=== PATIENT | male | born 1970 | race Caucasian/White ===

== ENCOUNTER 2023-01-22 06:45 | Inpatient (IN) | payer MEDICAID ==
[~2023-01-22] VITALS: Ht 170.2 cm; Wt 99.8 kg
[2023-01-22 07:10] VITALS: BP 138/108
--- NOTE | 2023-01-22 07:14 | NUR ---
[facility] USING [facility] [id number] - [facility]
[2023-01-22] MEDS ORDERED: NACL 0.9% 1,000 ML IV SCH (07:15)
[2023-01-22] MEDS ORDERED: KETOROLAC 15 MG/ML VIAL IVP ONE (07:15)
[2023-01-22] MEDS ORDERED: ACETAMINOPHEN 325 MG TAB PO ONE (07:15)
--- NOTE | 2023-01-22 07:23 | NUR ---
EKG AT [facility].
[2023-01-22] MEDS ORDERED: cefTRIAXone 1,000 MG VIAL ONE (07:28)
[2023-01-22 08:12] LABS: BASOPHILS % (AUTO) 0.2 % (0.0-2.0); HEMATOCRIT 45.2 % (36-52); HEMOGLOBIN 15.3 g/dL (12.0-18.0); LYMPHOCYTES # (AUTO) 0.8 K/uL (2.0-11.5); LYMPHOCYTES % (AUTO) 4.4 % (20.5-51.1); MEAN CORPUSCULAR HEMOGLOBIN 30 pg (27-31); MEAN CORPUSCULAR HGB CONC 34 g/dL (33-37); MEAN CORPUSCULAR VOLUME 89.1 fL (80-94); MONOCYTES # (AUTO) 1.4 K/uL (0.8-1.0); MONOCYTES % (AUTO) 7.7 % (1.7-9.3); NEUTROPHILS # (AUTO) 15.7 K/uL (1.8-7.7); NEUTROPHILS % (AUTO) 87.7 % (42.2-75.2); PLATELET COUNT (AUTO) 131 K/uL (140-450); RED BLOOD CELL COUNT(AUTO) 5.08 MIL/uL (4.20-6.10); RED CELL DISTRIBUTION WIDTH 13.9 % (11.6-13.7)
[2023-01-22 08:24] LABS: PROTHROMBIN TIME 11.6 secs (10.8-13.4)
[2023-01-22 08:25] LABS: ALBUMIN 4.1 g/dL (3.4-5.0); ANION GAP 14.3 (8-16); CARBON DIOXIDE 24.2 mmol/L (21-32); CREATININE 1.2 mg/dL (0.6-1.3); POTASSIUM 3.5 mmol/L (3.5-5.1); TOTAL BILIRUBIN 2.1 mg/dL (0.0-1.0)
[2023-01-22 08:26] LABS: APPEARANCE,URINE CLOUDY (CLEAR); BILIRUBIN,URINE 1+ (NEGATIVE); BLOOD, URINE 3+ (NEGATIVE); COLOR,URINE ORANGE (YELLOW); LEUKOCYTE ESTERASE ,URINE 2+ (NEGATIVE); NITRITE, URINE POSITIVE (NEGATIVE); PH,URINE 5.5 (5.0-9.0); UGLUCOSE TRACE (NEGATIVE)
[2023-01-22 08:38] LABS: RBC,URINE 11-20 (MOD) /HPF (0-5); WBC,URINE TOO MANY TO COUNT /HPF (0-5)
[2023-01-22] MEDS ORDERED: guaiFENesin DM 200/20 MG-10 ML 10 ML UDC PO PRN (11:05)
[2023-01-22] MEDS ORDERED: POTASSIUM CHLORIDE 10 MEQ TABER PO PRN (11:05)
[2023-01-22] MEDS ORDERED: ONDANSETRON 4 MG/2 ML VIAL IM/IVP PRN (11:05)
[2023-01-22] MEDS ORDERED: HYDROcodone/APAP 7.5/325 MG 1 TAB PO PRN (11:05)
[2023-01-22] MEDS ORDERED: ZOLPIDEM 5 MG TAB PO PRN (11:05)
[2023-01-22] MEDS ORDERED: DOCUSATE SODIUM 100 MG GELCAP PO PRN (11:05)
[2023-01-22] MEDS ORDERED: ACETAMINOPHEN 325 MG TAB PO PRN (11:05)
[2023-01-22] MEDS: NACL 0.9% 1,000 ML IV SCH (11:19)
[2023-01-22 14:02] LABS: AMYLASE 28 U/L (25-115); LIPASE 52 U/L (73-393); PHOSPHORUS 2.5 mg/dL (2.5-4.9)
--- NOTE | 2023-01-22 17:25 | NUR ---
RECEIVED PT FROM SUPERINTENDENT TERMINAL NURSE, PT ARRIVED TO [facility] VIA [facility]. PT AMBULATED FROM [facility] TO BED. PT IS AOX4, ABLE TO VERBALIZE NEEDS. SKIN INTACT AND WARM TO TOUCH. RESPIRATIONS EVEN AND UNLABORED ON RA. IV ON L A/C 20G. CALL LIGHT WITHIN REACH, ALL SAFETY PRECAUTIONS IN PLACE. Addendum: 01/22/23 at 1931 by Steffanie Eduardo LVN RECEIVED PT FROM ER , PT ARRIVED TO [facility] VIA [facility]. PT AMBULATED FROM [facility] TO BED. PT IS AOX4, ABLE TO VERBALIZE NEEDS. SKIN INTACT AND WARM TO TOUCH. RESPIRATIONS EVEN AND UNLABORED ON RA. IV ON L A/C 20G. CALL LIGHT WITHIN REACH, ALL SAFETY PRECAUTIONS IN PLACE.
[2023-01-22 17:26] VITALS: BP 157/108
--- NOTE | 2023-01-22 17:40 | NUR ---
Patient will be admitted to care of . Admited to tele. Will go to room 111B. Belongings list completed. Report to Steffanie.
[2023-01-22] MEDS ORDERED: hydrALAZINE 20 MG/ML VIAL IVP PRN (17:55)
[2023-01-22] MEDS: PIPERACILLIN/TAZOBACTAM 3.375 GM in DEXTROSE 5% 50 ML IV SCH (18:38)
--- NOTE | 2023-01-22 19:25 | NUR ---
ENDORSED PT TO UTILITY PLANT OPERATIVE NURSE FOR CONTINUITY OF CARE. PT IN STABLE CONDITION.
--- NOTE | 2023-01-22 19:30 | NUR ---
RECEIVED PT FROM DAY RN FOR CONTINUITY OF CARE. PT AWAKE, ALERT AND ORIENTED X 4, ON ROOM AIR, BREATHING EVEN AND UNLABORED. FAMILY AT BEDSIDE. NO S/SX OF DISTRESS AT THIS MOMENT. IV ON L AC G20, RUNNING FLUIDS PER MD ORDER. SKIN WARM, DRY AND INTACT. POC DISCUSSED. ALL PRECAUTIONS IN PLACE. CALL LIGHT WITHIN REACH. WILL CONTINUE TO MONITOR.
[2023-01-22 20:00] VITALS: BP 119/81
[2023-01-22 22:54] LABS: BARBITURATE, URINE NEGATIVE ng/ml (NEG <=200); BENZODIAZEPINE, URINE NEGATIVE ng/mL (NEG <=200); CANNABINOID, URINE NEGATIVE ng/mL (NEG <=50); COCAINE, URINE NEGATIVE ng/mL (NEG <=300); OPIATE, URINE NEGATIVE ng/mL (NEG <=2000); PHENCYCLIDINE SCREEN,URINE NEGATIVE ng/mL (NEG <=25)
[2023-01-23] VITALS: BP 127/88
--- NOTE | 2023-01-23 | NUR ---
SCHEDULED MEDICATIONS GIVEN. PT TOLERATED WELL. WILL CONTINUE TO MONITOR.
[2023-01-23] MEDS: PIPERACILLIN/TAZOBACTAM 3.375 GM in DEXTROSE 5% 50 ML IV SCH ×4 (00:02→17:14)
--- NOTE | 2023-01-23 03:48 | NUR ---
PT ASLEEP. BREATHING EVEN AND UNLABORED, NO S/SX OF RESPIRATORY DISTRESS. ALL PRECAUTIONS IN PLACE. CALL LIGHT WITHIN REACH. WILL CONTINUE TO MONITOR.
[2023-01-23 04:00] VITALS: BP 139/82
[2023-01-23] MEDS: NACL 0.9% 1,000 ML IV SCH ×2 (04:41→20:25)
--- NOTE | 2023-01-23 06:53 | NUR ---
PT IS STABLE. NO ACUTE EVENTS THROUGHOUT THE NIGHT.ALL NEEDS ATTENDED. NO S/SX OF DISTRESS AT THIS MOMENT. ALL PRECAUTIONS IN PLACE. CALL LIGHT WITHIN REACH. WILL ENDORSE TO DAY SHIFT NURSE.
[2023-01-23 07:28] LABS: BASOPHILS % (AUTO) 0.1 % (0.0-2.0); HEMATOCRIT 41.7 % (36-52); LYMPHOCYTES # (AUTO) 0.6 K/uL (2.0-11.5); LYMPHOCYTES % (AUTO) 4.8 % (20.5-51.1); MEAN CORPUSCULAR HEMOGLOBIN 30 pg (27-31); MEAN CORPUSCULAR HGB CONC 34 g/dL (33-37); MEAN CORPUSCULAR VOLUME 89.7 fL (80-94); MONOCYTES # (AUTO) 0.8 K/uL (0.8-1.0); MONOCYTES % (AUTO) 6.8 % (1.7-9.3); NEUTROPHILS # (AUTO) 10.7 K/uL (1.8-7.7); NEUTROPHILS % (AUTO) 88.3 % (42.2-75.2); PLATELET COUNT (AUTO) 109 K/uL (140-450); RED BLOOD CELL COUNT(AUTO) 4.65 MIL/uL (4.20-6.10); RED CELL DISTRIBUTION WIDTH 13.8 % (11.6-13.7); WHITE BLOOD COUNT (AUTO) 12.2 K/uL (4.8-10.8)
--- NOTE | 2023-01-23 07:29 | NUR ---
receive the patinet from the assurance manager insurance rn in rm 111B admitting diagnosis of sepsis . will continue to monitor
[2023-01-23 07:33] LABS: CARBON DIOXIDE 27.6 mmol/L (21-32); CREATININE 1.2 mg/dL (0.6-1.3); POTASSIUM 3.6 mmol/L (3.5-5.1)
[2023-01-23 08:00] VITALS: BP 146/98
[2023-01-23] MEDS: PANTOPRAZOLE 40 MG TABEC PO SCH (09:23)
--- NOTE | 2023-01-23 09:57 | NUR ---
PATIENT HAS BEEN SCREENED AND CATEGORIZED MODERATE NUTRITION RISK. PATIENT WILL BE SEEN WITHIN 3-5 DAYS OF ADMISSION. / REVIEWED BY CHANEL TABOR RD
--- NOTE | 2023-01-23 11:30 | NUR ---
[place] patient has low grade fever 100.3 . gave tylenol , cooling measures . will continue to monitor
[2023-01-23 12:00] VITALS: BP 141/98
[2023-01-23 16:00] VITALS: BP 134/72
--- NOTE | 2023-01-23 18:28 | NUR ---
will endorse to overnight stocker rn for continuity of care
[2023-01-23 20:00] VITALS: BP 131/81
--- NOTE | 2023-01-23 21:30 | NUR ---
SCHEDULED MEDICATIONS GIVEN. PT TOLERATED WELL. WILL CONTINUE TO MONITOR.
[2023-01-24] VITALS: BP 140/87
[2023-01-24] MEDS: PIPERACILLIN/TAZOBACTAM 3.375 GM in DEXTROSE 5% 50 ML IV SCH ×4 (00:02→17:20)
[2023-01-24 04:00] VITALS: BP 127/75
--- NOTE | 2023-01-24 07:02 | NUR ---
receive the patient from the scene shifter rn in rm 111B aox4 ambulatory . admitting diagnosis of sepsis . will continue to monitor
[2023-01-24 07:51] LABS: BASOPHILS % (AUTO) 0.2 % (0.0-2.0); EOSINOPHILS % (AUTO) 0.3 % (0.0-4.0); HEMATOCRIT 40.6 % (36-52); HEMOGLOBIN 13.7 g/dL (12.0-18.0); LYMPHOCYTES # (AUTO) 0.5 K/uL (2.0-11.5); LYMPHOCYTES % (AUTO) 11.1 % (20.5-51.1); MEAN CORPUSCULAR HEMOGLOBIN 31 pg (27-31); MEAN CORPUSCULAR HGB CONC 34 g/dL (33-37); MEAN CORPUSCULAR VOLUME 90.2 fL (80-94); MONOCYTES # (AUTO) 0.5 K/uL (0.8-1.0); MONOCYTES % (AUTO) 11.2 % (1.7-9.3); NEUTROPHILS # (AUTO) 3.5 K/uL (1.8-7.7); NEUTROPHILS % (AUTO) 77.2 % (42.2-75.2); PLATELET COUNT (AUTO) 103 K/uL (140-450); RED CELL DISTRIBUTION WIDTH 13.8 % (11.6-13.7); WHITE BLOOD COUNT (AUTO) 4.5 K/uL (4.8-10.8)
[2023-01-24 08:00] VITALS: BP 147/90
[2023-01-24 08:04] LABS: ANION GAP 11.8 (8-16); CARBON DIOXIDE 25.8 mmol/L (21-32); CREATININE 1.2 mg/dL (0.6-1.3); POTASSIUM 3.6 mmol/L (3.5-5.1)
[2023-01-24] MEDS: PANTOPRAZOLE 40 MG TABEC PO SCH (09:47)
[2023-01-24] MEDS ORDERED: AMOX-999 PO (10:22)
[2023-01-24 12:00] VITALS: BP 154/96
[2023-01-24] MEDS: NACL 0.9% 1,000 ML IV SCH (13:40)
[2023-01-24 17:26] VITALS: BP 126/78
--- NOTE | 2023-01-24 18:13 | NUR ---
discharge the patient home with prescription . discharge teaching was done . patient in a stable condition
== END 2023-01-24 17:57 | disposition home or self-care (01) | DRG 720 ==
LOC: MED 06:45 → MTU 11:05
PROVIDERS: ADMIT Student in an Organized Health Care Education/Training Program; ATTEND Student in an Organized Health Care Education/Training Program
DX: A41.9 Sepsis, unspecified organism (principal); E83.51 Hypocalcemia; N39.0 Urinary tract infection, site not specified; M54.9 Dorsalgia, unspecified; K42.9 Umbilical hernia without obstruction or gangrene; E80.6 Other disorders of bilirubin metabolism; N40.0 Benign prostatic hyperplasia without lower urinary tract symptoms; N41.9 Inflammatory disease of prostate, unspecified; Z20.822 Contact with and (suspected) exposure to COVID-19; N28.1 Cyst of kidney, acquired
CPT/HCPCS: 36415; 71045; 80048; 80053; 80305; 81001; 82150; 83605; 83690; 83735; 83880; 84100; 84484; 85025; 85610; 85730; 87040; 87081; 87086; 87491; 93005; 96365; 96375; 99285; J0360; J0696; J1885; J2543; J7060; Q0092